=== PATIENT | female | born 1960 | race Caucasian/White ===

== ENCOUNTER 2018-03-06 11:20 | Emergency (ER) | payer SELFPAY ==
[~2018-03-06] VITALS: Ht 165.1 cm; Wt 98.6 kg
[2018-03-06 11:29] VITALS: BP 123/102
[2018-03-06] MEDS ORDERED: acetaminophen 325mg tablet PO ONE (12:50)
[2018-03-06] MEDS ORDERED: amoxicillin 250mg capsule PO ONE (12:50)
[2018-03-06] MEDS ORDERED: AMOX500C2 PO (12:53)
[2018-03-06] MEDS ORDERED: HYDR-3965 PO (12:57)
[2018-03-06] MEDS ORDERED: TETanus/Pertussis (Acell)/Diphther VAC/PF (Tdap-Adult) 0.5ml syringe IMVAC ONE (13:40)
== END 2018-03-06 14:43 | disposition home or self-care (01) ==
LOC: ER 11:21
DX: S06.0X0A Concussion without loss of consciousness, initial encounter (principal); S91.101A Unspecified open wound of right great toe without damage to nail, initial encounter; M79.642 Pain in left hand; J32.9 Chronic sinusitis, unspecified; Z88.1 Allergy status to other antibiotic agents; Z79.2 Long term (current) use of antibiotics; W01.198A Fall on same level from slipping, tripping and stumbling with subsequent striking against other object, initial encounter; Y93.89 Activity, other specified; Y92.89 Other specified places as the place of occurrence of the external cause; Y99.8 Other external cause status
CPT/HCPCS: 70450; 70486; 73130; 90471; 90715; 99284

== ENCOUNTER → 2023-12-06 | Outpatient (CLI) | payer MEDICAID | END | disposition home or self-care (01) | LOC: RAD 08:31 | PROVIDERS: ATTEND Family Medicine | DX: R10.2 Pelvic and perineal pain (principal) | CPT/HCPCS: 76856; 93976 ==